=== PATIENT | female | born 1995 | race American Indian/Alaskan Native ===

== ENCOUNTER 2018-06-11 13:26 | Emergency (ER) | payer OTHER ==
[2018-06-11] MEDS ORDERED: NORCO 5/325 PO ONE (13:41)
[2018-06-11] MEDS ORDERED: TORADOL IM ONE (13:41)
[2018-06-11] MEDS ORDERED: ZOFRAN ODT PO ONE (13:58)
[2018-06-11] MEDS ORDERED: MORPHINE IM ONE (14:00)
[2018-06-11] MEDS: MORPHINE IV ONE ×2 (14:25)
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
[2018-06-11] MEDS ORDERED: NORCO PO ONE (15:31)
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
[2018-06-11 16:34] VITALS: BP 131/74
== END 2018-06-11 16:35 | disposition home or self-care (01) ==
LOC: ED 13:26
DX: S16.1XXA Strain of muscle, fascia and tendon at neck level, initial encounter (principal); Z88.0 Allergy status to penicillin; V43.92XA Unspecified car occupant injured in collision with other type car in traffic accident, initial encounter; Y93.89 Activity, other specified; Y92.89 Other specified places as the place of occurrence of the external cause; Y99.8 Other external cause status
CPT/HCPCS: 72072; 72100; 72125; 96372; 99284; J1885; J2270; Q0162